=== PATIENT | female | born 2000 | race Caucasian/White ===

== ENCOUNTER 2022-11-28 12:08 | Emergency (ER) | payer OTHER ==
[~2022-11-28] VITALS: Ht 160 cm; Wt 58.0 kg
[2022-11-28 12:13] VITALS: BP 109/70; PULSE 61; RESP 18; TEMP 98.5; O2SAT 100
[2022-11-28] MEDS ORDERED: CEFTRIAXONE SODIUM 500 MG/VIAL IM ONE (12:30)
[2022-11-28 13:16] LABS: CLARITY URINE CLEAR (CLEAR); COLOR URINE YELLOW (YELLOW); GLUCOSE URINE NEGATIVE (NEGATIVE); KETONES URINE NEGATIVE (NEGATIVE); LEUKOCYTE ESTERASE URINE 1+ (NEGATIVE); NITRITE URINE NEGATIVE (NEGATIVE); OCCULT BLOOD URINE NEGATIVE (NEGATIVE); PH URINE 6.5 (4.5-8.0); PROTEIN URINE 1+ (NEGATIVE); SPECIFIC GRAVITY URINE 1.022 (1.005-1.030)
[2022-11-28 13:39] LABS: WBC URINE 15-25 /hpf (0-2)
[2022-11-28 13:40] LABS: BACTERIA URINE 1+; SQUAMOUS EPITHELIAL CELL URINE 1+ /lpf (RARE/1+); YEAST URINE NONE SEEN
[2022-11-28] MEDS ORDERED: LIDOCAINE HCL/PF 1% 10 MG/ML 5ML VIAL INFIL ONE (14:30)
[2022-11-28] MEDS ORDERED: CEFTRIAXONE SODIUM 500 MG/VIAL IM NR (14:45)
[2022-11-28] MEDS ORDERED: LIDOCAINE HCL/PF 1% 10 MG/ML 5ML VIAL INFIL NR (14:45)
[2022-11-28] MEDS ORDERED: DOXY100C5 MT (15:05)
[2022-11-28] MEDS ORDERED: METR70GE5 VG (15:05)
[2022-11-30 04:12] LABS: CHLAMYDIA TRACHOMATIS NAA Negative (Negative); NEISSERIA GONORRHOEAE NAA Negative (Negative)
== END 2022-11-28 15:12 | disposition home or self-care (01) ==
LOC: ER 12:08
DX: Z11.3 Encounter for screening for infections with a predominantly sexual mode of transmission (principal)
CPT/HCPCS: 87491; 87591; 81003; 81025; 86592; 87086; 87186; 87210; 87077; 96372; 99284; J0696; J3490; Z7610